=== PATIENT | male | born 1965 | race Caucasian/White ===

== ENCOUNTER → 2024-01-12 08:56 | Outpatient (REF) | payer OTHER, SELFPAY | LOC: RCS 08:56 | PROVIDERS: ATTENDING PHYSICIAN Internal Medicine Cardiovascular Disease; FAMILY PHYSICIAN Family Medicine | DX: I10 Essential (primary) hypertension (principal); E78.2 Mixed hyperlipidemia; E78.00 Pure hypercholesterolemia, unspecified; Z78.9 Other specified health status; Z84.89 Family history of other specified conditions; R93.1 Abnormal findings on diagnostic imaging of heart and coronary circulation | CPT/HCPCS: 93017; 93350 ==

== ENCOUNTER → 2024-12-27 10:24 | Outpatient (REF) | payer OTHER, SELFPAY | LOC: RAD 10:24 | PROVIDERS: ATTENDING PHYSICIAN Registered Nurse | DX: M25.511 Pain in right shoulder (principal); M25.512 Pain in left shoulder | CPT/HCPCS: 73030 ==